=== PATIENT | female | born 1980 | race Caucasian/White ===

== ENCOUNTER 2021-04-13 14:56 | Day surgery (SDC) | payer OTHER ==
[2021-04-13] MEDS ORDERED: BUPIVACAINE 0.5% VIAL IJ ONE (14:57)
[2021-04-13] MEDS ORDERED: Depo-Medrol 40 MG/ML IM ONE (14:57)
[2021-04-13] MEDS ORDERED: Lactated Ringers 1,000 ML IV ONE (16:00)
[2021-04-13] MEDS ORDERED: DIPRIVAN 200 MG/20 ML IV ONE (16:22)
--- NOTE | 2021-04-14 11:54 | XRAY ---
18 seconds fluoroscopy time in surgery for bilateral injections of the SI joints.
--- NOTE | 2021-04-17 00:47 | XRAY ---
Indication: Bilateral SI joint injections. Intraoperative fluoroscopy was provided for 18 seconds. 2 lateral digital spot images submitted for interpretation demonstrates posterior needle tips projected over the sacroiliac joints. Correlate with intraoperative findings/report.
== END 2021-04-13 16:46 | disposition home or self-care (01) ==
LOC: SDC-PAIN 14:56
PROVIDERS: ATTEND Psychiatry & Neurology Pain Medicine
DX: M46.1 Sacroiliitis, not elsewhere classified (principal); Z79.899 Other long term (current) drug therapy
CPT/HCPCS: 27096; 72202; 77002; J1030; J2704; G0260